=== PATIENT | female | born 1955 ===

== ENCOUNTER → 2018-10-03 | Outpatient (CLI) | payer MEDICARE | END | disposition home or self-care (01) | LOC: LAB SHORT 08:30 → LAB EV 08:30 | DX: R31.21 Asymptomatic microscopic hematuria (principal) | CPT/HCPCS: 87086 ==

== ENCOUNTER → 2018-12-05 | Outpatient (CLI) | payer MEDICARE, OTHER | END | disposition home or self-care (01) | LOC: LAB SHORT 19:03 → LAB 19:03 | PROVIDERS: Family Medicine | DX: Z01.419 Encounter for gynecological examination (general) (routine) without abnormal findings (principal) | CPT/HCPCS: G0145 ==

== ENCOUNTER 2018-12-29 09:51 | Day surgery (SDC) | payer MEDICARE, OTHER ==
[~2018-12-29] VITALS: Ht 160 cm; Wt 52.7 kg
[~2018-12-29 09:51] MED LIST: ERGO400 PO; Garlic1 EAC1 PO
--- NOTE | 2018-12-29 11:31 | NUR ---
12/29/18 1131 Carolyn Frye PT.'S HR 49 IN PREOP, DR. WILLIS NOTIFEID. PT. VERBALIZES SHE IS A RUNNER.
== END 2018-12-29 12:30 | disposition home or self-care (01) ==
LOC: ORSCSDS 09:51
PROVIDERS: Surgery
PROC: 0DJD8ZZ Inspection of Lower Intestinal Tract, Via Natural or Artificial Opening Endoscopic (ICD-10-PCS; principal; 2018-12-29 11:00)
DX: Z12.11 Encounter for screening for malignant neoplasm of colon (principal)
CPT/HCPCS: J2704; J7120